=== PATIENT | male | born 1985 | race African-American/Black ===

== ENCOUNTER 2020-10-14 16:50 | Emergency (ER) | payer OTHER ==
[~2020-10-14] VITALS: Ht 177.8 cm; Wt 104.3 kg
[2020-10-14] MEDS ORDERED: ELIQUIS5 M1 PO (20:13)
[2020-10-14 20:25] VITALS: BP 160/100
== END 2020-10-14 20:26 | disposition home or self-care (01) ==
LOC: ER 16:50
DX: I82.451 Acute embolism and thrombosis of right peroneal vein (principal); I82.411 Acute embolism and thrombosis of right femoral vein